=== PATIENT | male | born 1985 | race Caucasian/White ===

== ENCOUNTER 2023-12-05 01:42 | Emergency (ER) | payer OTHER ==
[~2023-12-05] VITALS: Ht 182.9 cm; Wt 73.7 kg
[2023-12-05 03:34] LABS: BASO % 0.3 % (0.0-1.0); EOS % 0.3 % (0.0-3.0); HEMOGLOBIN 16.5 g/dl (13.5-17.5); LYMPH # 1.2 10^3/uL (1.5-5.0); LYMPH % 8.1 % (24.0-44.0); MEAN CORPUSCULAR HEMOGLOBIN 31.1 pg (27.0-33.0); MEAN CORPUSCULAR HGB CONC 34.4 g/dl (32.0-36.5); MEAN CORPUSCULAR VOLUME 90.6 fl (80.0-96.0); MONO # 0.8 10^3/uL (0.0-0.8); MONO % 5.1 % (2.0-8.0); NEUTROPHILS # 12.6 10^3/uL (1.5-8.5); NEUTROPHILS % 86.1 % (36.0-66.0); PLATELET COUNT, AUTOMATED 244 10^3/uL (150-450); WHITE BLOOD COUNT 14.7 10^3/uL (4.0-10.0)
[2023-12-05 04:23] LABS: ALBUMIN 4.8 G/DL (3.2-5.2); BILIRUBIN,DIRECT 0.4 MG/DL (<0.4); BILIRUBIN,TOTAL 1.2 MG/DL (0.3-1.2); CALCIUM LEVEL 10.5 MG/DL (8.5-10.1); CREATININE FOR GFR 1.46 MG/DL (0.70-1.30); GLOMERULAR FILTRATION RATE 57.8 (>60); POTASSIUM SERUM 4.5 MMOL/L (3.5-5.1); TOTAL PROTEIN 7.4 G/DL (5.7-8.2)
[2023-12-05] MEDS: ONDANSETRON 4MG 2ML VIAL IV ONE (04:43)
[2023-12-05] MEDS: KETOROLAC 30 MG/ML 1ML VIAL IV ONE (04:57)
[2023-12-05] MEDS: MORPHINE 2 MG/ML 1ML VIAL IV ONE (06:46)
[2023-12-05] MEDS: NS 1,000 ML IV ONE (07:14)
[2023-12-05] MEDS ORDERED: FLOM0.4C39 PO (08:21)
[2023-12-05] MEDS ORDERED: IBUP-1022 PO (08:21)
[2023-12-05] MEDS ORDERED: PERC5TAB12 PO (08:22)
[2023-12-05] MEDS ORDERED: HOME MED LIST COMPLETE! XX SCH (08:45)
[2023-12-05] MEDS: MORPHINE 4 MG/ML 1ML VIAL IV ONE (08:47)
[2023-12-05] MEDS ORDERED: ONDA-282 PO (09:29)
[2023-12-05 09:55] VITALS: BP 120/69; TEMP 97.8; O2SAT 98
== END 2023-12-05 10:00 | disposition home or self-care (01) ==
LOC: M ED 01:42
DX: N13.30 Unspecified hydronephrosis (principal); N23 Unspecified renal colic
CPT/HCPCS: 74176; 80048; 80076; 81001; 83690; 85025; 96361; 96374; 96375; 96376; 99284; J1885; J2405